=== PATIENT | male | born 1980 | race Caucasian/White ===

== ENCOUNTER 2023-10-20 05:47 | Emergency (ER) | payer OTHER ==
[2023-10-20] MEDS: Dexamethasone 4 MG Tab PO STA (06:20)
[2023-10-20] MEDS: Ketorolac 30 MG/ML SDV IM ONE (06:20)
[2023-10-20] MEDS: Ondansetron 4 MG/2 ML SDV IVPUSH ONE (06:23)
== END 2023-10-20 06:43 | disposition home or self-care (01) ==
LOC: MW.ED 05:47
DX: M54.42 Lumbago with sciatica, left side (principal); Z91.030 Bee allergy status
CPT/HCPCS: 96372; 99283; J1885; J8540; 99284